=== PATIENT | male | born 1925 ===

== ENCOUNTER 2017-12-05 17:34 | Inpatient (IN) | payer MEDICARE ==
[~2017-12-05] VITALS: Ht 167.6 cm; Wt 63.0 kg
[2017-12-05] MEDS ORDERED: OMEP20TA8 PO (17:55)
[2017-12-05] MEDS ORDERED: DEXT5TAB27 PO (17:55)
[2017-12-05] MEDS ORDERED: LOSA25TA5 PO (17:55)
[2017-12-05] MEDS ORDERED: DONE10TA7 PO (17:55)
[2017-12-05] MEDS ORDERED: FURO40TA4 PO (17:55)
[2017-12-05] MEDS ORDERED: MIRT15TA3 PO (17:55)
[2017-12-05] MEDS ORDERED: ATOR20TA58 PO (17:55)
[2017-12-05] MEDS ORDERED: CARV3.12 PO (17:55)
[2017-12-05] MEDS ORDERED: TAMS0.4C97 PO (17:55)
[2017-12-05] MEDS ORDERED: IRON150C9 PO (17:55)
[2017-12-05 18:06] VITALS: BP 161/76
[2017-12-05] MEDS ORDERED: ACETAMINOPHEN 325 MG TABLET PO PRN (18:15)
[2017-12-05] MEDS ORDERED: MAGNESIUM HYDROXIDE 2,400 MG/30 ML ORAL.SUSP. PO PRN (18:15)
[2017-12-05] MEDS ORDERED: MAG HYDROX/AL HYDROX/SIMETH 30 ML ORAL.SUSP PO PRN (18:15)
[2017-12-05] MEDS ORDERED: METHYL SALICYLATE/MENTHOL TOPICAL OINTMENT 29GM TUBE. TP PRN (18:15)
--- NOTE | 2017-12-05 20:22 | EKG ---
[address] [address] Test Date: 2017-12-05 Test Time: 20:18:21 Pat Name: FARHAT MORALES Department: Room: [address] [place] [address] Gender: M Mental Health Tech: : [id number] Requested By: CARINA DAMON Order Number: [id number] Reading MD: Bertin Patiño Measurements Intervals [place] Rate: 78 P: 26 SD: 140 QRS: 20 QRSD: 92 T: 51 QT: 352 QTc: 405 Interpretive Statements SINUS RHYTHM NORMAL ECG Electronically Signed On 12-06-2017 11:50:54 CDT by Bertin Patiño
[2017-12-05 21:47] LABS: BASO % 0 % (0-3); EOS % 0 % (0-3); HEMATOCRIT 31.7 % (39.0-53.0); HEMOGLOBIN 10.8 g/dL (13.0-17.5); LYMPH # 1.7 x10^3/uL (1.0-4.8); LYMPH % 16 % (24-48); MEAN CORPUSCULAR HEMOGLOBIN 33 pg (25-35); MEAN CORPUSCULAR HGB CONC 34 g/dL (31-37); MEAN CORPUSCULAR VOLUME 97 fL (79-100); MONO # 1.4 x10^3/uL (0.0-1.1); MONO % 13 % (0-9); NEUT # 7.6 x10^3uL (1.8-7.7); NEUT % 71 % (31-73); PLATELET COUNT 196 x10^3/uL (140-400); RED BLOOD COUNT 3.29 x10^6/uL (4.30-5.70); RED CELL DISTRIBUTION WIDTH 13.4 % (11.5-14.5); WHITE BLOOD COUNT 10.8 x10^3/uL (4.0-11.0)
[2017-12-05 22:09] LABS: ALBUMIN 3.4 g/dL (3.4-5.0); CALCIUM 8.6 mg/dL (8.5-10.1); CREATININE 1.8 mg/dL (0.7-1.3); GFR 35.7; POTASSIUM 4.7 mmol/L (3.5-5.1); TOTAL BILIRUBIN 0.7 mg/dL (0.2-1.0); TOTAL PROTEIN 6.7 g/dL (6.4-8.2)
[2017-12-05 22:34] LABS: BGAS PH 7.39 (7.35-7.46)
--- NOTE | 2017-12-06 02:52 | RAD ---
EXAM: CHEST AP ONLY DATE: 12/05/2017 8:49 PM INDICATION: Short of air, cough, congestion COMPARISON: No Prior FINDINGS: Heart is not enlarged. Atherosclerotic calcifications of the tortuous aorta are seen. Mediastinal and hilar contours are normal. Patchy opacities in the left lung base likely atelectasis although early consolidation may have similar appearance. Trace left pleural effusion. No pneumothorax. Biapical pleural/parenchymal scarring/thickening is seen (right greater than left). Bilateral glenohumeral joint degenerative change. Electronically signed by: Aristeo Malin MD (12/06/2017 2:49 AM) [id number]
--- NOTE | 2017-12-06 10:07 | HP ---
ADMIT DATE: 12/05/2017 PSYCHIATRIC ADMISSION HISTORY AND EVALUATION AND DISCHARGE SUMMARY IDENTIFYING DATA: The patient is an 89-year-old male who is referred to us from [facility] where he was an inpatient and referred by his primary care physician, Dr. Srikanth Cam. The patient has been at the facility since 12/02/2017. He had been living alone by himself and family were closely involved in caring for him, but the confusion had been getting worse and he was increasingly anxious, delusional, refusing to eat, paranoid. 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 He does have a history of dementia, Alzheimer's, vascular type. He was deemed to be medically stable, unsafe to return home, continued to be a potential threat to himself and depressed within the context of his dementia and referred for inpatient psychiatric stabilization. I met with him evening of 12/05/2017 and shortly thereafter, the patient's family had come to visit him as well. CHIEF COMPLAINT: "No." The patient seems oriented just to himself and quite sedated HISTORY OF PRESENT ILLNESS: The patient has a history of dementia, Alzheimer's, vascular type. As noted, living situation [place] been [place] prec[place], even though the family were helping assist him in his home. He had been increasingly confused, delusional with marked insomnia, drop in appetite, depressed with suicidal statements. No clear symptoms of bipolar disorder. PAST PSYCHIATRIC HISTORY: Progressive dementia. PAST MEDICAL HISTORY: Positive for CHF, COPD, chronic constipation, anemia, coronary artery disease, GERD, hypertension, status post NC, history of pleural effusion/empyema, hyperlipidemia, osteoporosis, coronary artery disease with stents, skin cancer. CODE STATUS: DNR. DRUG ALLERGIES: Negative. CURRENT PSYCHOTROPICS: The patient did receive PRNs before arriving and I have reviewed the EMRAD. FAMILY HISTORY: Noncontributory. SOCIAL HISTORY: No alcohol, drug abuse, physical, sexual or elder abuse history is noted. He is not known to be a perpetrator. MENTAL STATUS EXAMINATION: The patient was seen individually evening of 12/05/2017. He is somewhat sedated, having received PRNs before coming to us from [place]. Insight, judgment, recent and remote memory, attention, concentration, fund of knowledge poor, consistent with his diagnosis. IMPRESSION: Major neurocognitive disorder, Alzheimer, vascular with delusion, depression, behavioral disturbance; anxiety disorder, unspecified; impulse control disorder, unspecified. Rest as above. TREATMENT PLAN AND CLINICAL COURSE: Following admission, the patient was seen individually by myself and discussed with nursing staff and previously discussed with nursing staff and social service staff on 3 or 4 occasions prior to patient's admission to gather referral information, background history. We did not initiate any changes in his medications from [facility]. Shortly after arriving on the unit, he was found to be in respiratory distress with his O2 sats in the 80s on 2 liters and BNP was significantly elevated. He was found to be in congestive heart failure with respiratory distress and transferred to the medical surgical floor for medical stabilization. DISCHARGE DIAGNOSES: Major neurocognitive disorder, Alzheimer, vascular with delusion, depression, behavioral disturbance; anxiety disorder, unspecified; impulse control disorder, unspecified; congestive heart failure, respiratory distress Rest as above. DISCHARGE MEDICATIONS: Please refer to the MRAD. I would be happy to follow the patient on the medical/surgical floor from a psychiatric standpoint if requested and be happy to reassess him for readmission to our unit if he meets clinical criteria at that time following medical stabilization. CARINA DAMON MD DR: EMILY/akua JOB#: [id number] / [id number]
[2017-12-06] MEDS ORDERED: LOSARTAN 25 MG TABLET. PO SCH (11:00)
[2017-12-06] MEDS ORDERED: CARVEDILOL 3.125 MG PO SCH (21:00)
[2017-12-06] MEDS ORDERED: IRON POLYSACCHARIDES COMPLEX 150 MG PO SCH (21:00)
[2017-12-06] MEDS ORDERED: ATORVASTATIN CALCIUM 20 MG TABLET PO SCH (21:00)
[2017-12-06] MEDS ORDERED: MIRTAZAPINE 15 MG PO SCH (21:00)
[2017-12-07] MEDS ORDERED: TAMSULOSIN 0.4 MG CAP.ER.24H. PO SCH (09:00)
[2017-12-07] MEDS ORDERED: DEXTROAMPHETAMINE PO SCH (09:00)
[2017-12-07] MEDS ORDERED: NON FORMULARY ITEM (Omeprazole 20 MG) PO SCH (09:00)
[2017-12-07] MEDS ORDERED: FUROSEMIDE 40 MG PO SCH (09:00)
[2017-12-07] MEDS ORDERED: AMPHETAMINE PO SCH (09:00)
[2017-12-07] MEDS ORDERED: DONEPEZIL HCL 10 MG PO SCH (09:00)
== END 2017-12-05 23:26 | disposition short-term general hospital (02) | DRG 57 ==
LOC: GEROPSY 17:34
PROVIDERS: ADMIT Psychiatry & Neurology Psychiatry; ATTEND Psychiatry & Neurology Psychiatry
DX: G30.9 Alzheimer's disease, unspecified (principal); F01.51 Vascular dementia, unspecified severity, with behavioral disturbance; F02.81 Dementia in other diseases classified elsewhere, unspecified severity, with behavioral disturbance; E78.5 Hyperlipidemia, unspecified; F32.9 Major depressive disorder, single episode, unspecified; F41.9 Anxiety disorder, unspecified; F63.9 Impulse disorder, unspecified; I11.0 Hypertensive heart disease with heart failure; I25.10 Atherosclerotic heart disease of native coronary artery without angina pectoris; G47.00 Insomnia, unspecified; I25.2 Old myocardial infarction; I50.9 Heart failure, unspecified; J44.9 Chronic obstructive pulmonary disease, unspecified; K21.9 Gastro-esophageal reflux disease without esophagitis; M81.0 Age-related osteoporosis without current pathological fracture; Z66 Do not resuscitate; Z85.828 Personal history of other malignant neoplasm of skin; Z95.5 Presence of coronary angioplasty implant and graft; Z79.899 Other long term (current) drug therapy
CPT/HCPCS: 36415; 71045; 80053; 82550; 82803; 83605; 83880; 84480; 84484; 85025; 87040; 93005